=== PATIENT | male | born 1955 | race Caucasian/White ===

== ENCOUNTER → 2016-07-10 | Outpatient (CLI) | payer BC, OTHER ==
[~2016-07-10] VITALS: Ht 175.3 cm; Wt 101.4 kg
[~2016-07-10] MED LIST: ALEVE220 MG PO; AVODART0.5 MG PO; CENTRUM SILVER1 EAC2 PO; FISH OIL 1,2001 EAC4 PO; NEURONTIN 300300 M1 PO; NEURONTIN300 MG PO; TUMERIC
--- NOTE | ~2016-07-10 | HPC ---
[facility] [address] [place] [address] PAIN MANAGEMENT CONSULTATION Name: RANDOLPH FOSTER Room #: REG [facility].#: [id number] Admission: 07/10/16 Attend Phys: Rivas Hines DO Discharge: Date of : 57 Report #: [id number] THIS REPORT FOR: //name// CC: Rivas Persaud DATE OF SERVICE: 07/10/2016 REFERRING PHYSICIAN: Sandor Griggs MD. CHIEF COMPLAINT: Right low back pain, right lower extremity pain and paresthesias. HISTORY OF PRESENT ILLNESS: As you know, the patient is an extremely pleasant 60-year-old male returning in followup visit for medication management. The patient began experiencing low back pain, right lower extremity pain in October of 2015. Denied any injury or trauma that may have led to symptoms. He was seen per the request of Dr. Griggs to trial epidural injections, the patient and I chose to begin with medication management initially, as he did not wish to become aggressive with treatment unless conservative treatments fail. He has done very well, reporting with 600 mg dose of gabapentin at night, near 100% resolution of symptoms. He is placing pain score at 0/10 today. He returns today in followup visit for continuation of medication management. ALLERGIES: CODEINE. CURRENT MEDICATIONS: Gabapentin, multivitamin, omega 3 fish oil, Avodart, Aleve, and naproxen. SOCIAL HISTORY: The patient denies tobacco, IV or illicit drug use. Admits to an occasional alcoholic beverage. 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 He is working, not receiving workmen's compensation. Unaccompanied today. PHYSICAL EXAMINATION: VITAL SIGNS: Blood pressure 117/79, pulse is 62, respiratory rate 14, unlabored. The patient is 96% on room air. Height 5 feet 9 inches tall, weight 223.6 pounds, BMI calculated at 33. GENERAL: Well-developed, well-nourished, and well-hydrated. A 60-year-old male, appearing his stated age. He is placing current pain score at 0/10. HEENT: Normocephalic and atraumatic. Pupils are equal, round, and reactive to light. Hearing is decreased. EXTREMITIES: Showed no clubbing, no cyanosis, no edema. MUSCULOSKELETAL: Lower extremity strength equal and symmetrical at 5/5. Gait normal and tandem. Station normal. Seated straight leg raising negative. Supine straight leg raising mildly positive right. Talib's test is negative. [facility] [address] [place] [address] PAIN MANAGEMENT CONSULTATION Name: RANDOLPH FOSTER Room #: REG [facility]#: [id number] Admission: 07/10/16 Attend Phys: Rivas Hines DO Discharge: Date of : 57 Report #: [id number] ASSESSMENT: 1. Lumbar radiculopathy. 2. 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 3. Lumbosacral spondylosis with radiculopathy. 4. Lumbar degeneration. PLAN: 1. The patient has returned today in followup visit having noted excellent improvement with gabapentin therapy. The patient is now at 600 mg to 900 mg at night with good efficacy. He is denying any side effects to medication and wishes to continue therapy at current dosing. We have agreed to continue the medication for the next 6 months as he is doing well with medication therapy. Side effects are nonexistent such as sleepiness, disorientation, and confusion. The fact that he has done well with this medication, would indicate that he should continue on the therapy for the foreseeable future. Certainly surgical options remain, as well as does epidural injections, but we are pleased to see he has done very well with conservative treatment. 2. The patient was provided a prescription of gabapentin 300 mg dose 3 tabs p.o. at bedtime, #90. This allowed the patient to take the 600 mg baseline dose or 900 mg dose, if necessary if pain intensifies. We have given the patient #90 tablets with five refills. 6 months' worth of medication. 3. The patient will return to our clinic on an as needed basis if he wishes to undergo interventional treatments. Discussed changes in medication therapy. Otherwise, we will see him back in followup visit in 6 months for medication management. <ELECTRONICALLY SIGNED> By: Rivas Hines DO 07/15/16 0702 0843 [id number] Rivas Hines DO /nt
[2016-07-10 08:17] VITALS: BP 117/79
== END | disposition home or self-care (01) ==
LOC: PAIN 06:29
DX: M51.16 Intervertebral disc disorders with radiculopathy, lumbar region (principal); M47.27 Other spondylosis with radiculopathy, lumbosacral region; G47.33 Obstructive sleep apnea (adult) (pediatric)

== ENCOUNTER → 2017-06-24 | Outpatient (CLI) | payer BC, OTHER ==
[~2017-06-24] VITALS: Ht 175.3 cm; Wt 98.9 kg
[~2017-06-24] MED LIST changes: +FISH OIL 1,001000 M2 PO; +GLUCOSAMINE HC500 MG PO; +MOBIC7.5 MG PO; +ROXICODONE5 MG PO
--- NOTE | ~2017-06-24 | HPC ---
[facility] [place] [address] PAIN MANAGEMENT CONSULTATION Name: RANDOLPH FOSTER Room #: REG [facility] Serena#: [id number] Admission: 06/24/17 Attend Phys: Rivas Hines DO Discharge: Date of : 57 Report #: [id number] THIS REPORT FOR: //name// CC: Rivas Hines Referring Physician Rodrigo Persaud DATE OF SERVICE: 06/24/2017 CHIEF COMPLAINT: Low back pain, right lower extremity pain with paresthesias. HISTORY OF PRESENT ILLNESS: As you know, the patient is a very pleasant 61-year-old male with longstanding history of low back pain, right lower extremity pain with paresthesias. He carries a diagnosis of lumbar radiculopathy, displacement of a lumbar intervertebral disk with radiculopathy, lumbosacral spondylosis with radiculopathy and lumbar degeneration. He returns today in followup visit indicating that his medications have begun to lose effect. He returns today to discuss options for treatment. He has not had imaging in a very long period of time believes that something "may have changed." He returns today to discuss options for treatment. As you are aware, the patient was referred to our clinic by his neurosurgeon, Dr. Sandor Griggs to trial conservative treatment. We have been successful in treating his symptoms for a very long period of time, but I am concerned that there is possibility to change, maybe significant enough that we cannot obtain further analgesia with oral medications. We will make adjustments in the therapy today and hopefully have the patient undergo new imaging. ALLERGIES: CODEINE. CURRENT MEDICATIONS: Multivitamin, omega-3 fish oil, Avodart, gabapentin. SOCIAL HISTORY: The patient denies tobacco, IV or illicit drug use. Admits to occasional alcohol beverage. 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 IMAGING: No new imaging available. PHYSICAL EXAMINATION: VITAL SIGNS: Blood pressure 126/79, pulse 70, respiratory rate 16 and unlabored, the patient is 97% on room air. Height 5 feet 9 inch tall, weight 218 pounds, BMI calculated 32.2. GENERAL: Well-developed, well-nourished, well-hydrated 61-year-old male appearing his stated age, pain is rated around 10/10. HEENT: Normocephalic, atraumatic. Pupils are equal, round, reactive to light. Speech is fluent for patient, hearing loss noted. EXTREMITIES: Show no clubbing, no cyanosis, [place] [address] PAIN MANAGEMENT CONSULTATION Name: RANDOLPH FOSTER Room #: REG [facility]#: [id number] Admission: 06/24/17 Attend Phys: Rivas Hines DO Discharge: Date of : 57 Report #: [id number] MUSCULOSKELETAL: Lower extremity strength equal and symmetrical 5/5. Gait is normal. Stance is normal. Seated straight leg raising negative. Supine straight leg raising positive on the right. ASSESSMENT: 1. Lumbar radiculopathy. 2. Displacement of lumbar intervertebral disk with radiculopathy. 3. Lumbosacral spondylosis with radiculopathy. 4. Lumbar degeneration. 5. Chronic intractable pain. PLAN: 1. The patient returns today in followup visit unfortunately, indicating that his symptoms have progressed. He is now placing pain score 10/10. He denies new injury or new trauma, but believes his pain has changed to some degree. He is returning today for adjustments in medication therapy and discuss other options for treatment. Given the findings on physical exam and the distribution of symptoms, I am concerned of progressively worsening lumbar radiculopathy. I recommend further imaging and adjustments in therapy today. 2. The patient will undergo CT of the lumbar spine without contrast. The patient cannot undergo MRI due to implanted devices. He will undergo the CT examination immediately and we will review the findings once they are available. We have established an appointment for the patient to undergo CT examination. We will review the findings once they are available and contact the patient once those results have been reported. We will have the patient return to discuss the potential treatment options including the possibility of returning to his neurosurgeon for further evaluation. 3. We will start the patient on Gralise. He is having difficulty escalating his dose of gabapentin. He is currently taking the equivalent of 900 mg per day, but cannot escalate the dose due to side effects of somnolence, decreased mental acuity, disorientation, confusion with daytime dosing. Even the evening doses are leading to symptoms that last for hours upon arising. We have attempted to adjust these medications, but have been unsuccessful at alleviating the dysphoric effects. We will start the patient on Gralise. He will take this medication at night 2 hours before bedtime, is given sample pack of the medication. I am hopeful he will see analgesic benefit with the gabapentin as he has with the immediate release with the reduction in the potential side effects that are noted with a long-acting gabapentin therapy. We have provided the sample pack today. We will review its efficacy at our followup visit. 4. The patient will return to our clinic once he has completed the CT examination. We will review the findings and discuss the efficacy of the Gralise therapy. <ELECTRONICALLY SIGNED> By: Rivas Hines DO 06/25/17 1219 0814 0918 Rivas Hines DO /janine
[2017-06-24 08:44] VITALS: BP 126/79
== END ==
LOC: PAIN 06:43
DX: M51.16 Intervertebral disc disorders with radiculopathy, lumbar region (principal); M47.27 Other spondylosis with radiculopathy, lumbosacral region; M47.896 Other spondylosis, lumbar region; G89.29 Other chronic pain; Z72.89 Other problems related to lifestyle

== ENCOUNTER → 2017-07-01 | Outpatient (CLI) | payer BC, OTHER | LOC: CAT 07:57 | DX: M48.061 Spinal stenosis, lumbar region without neurogenic claudication (principal); M54.16 Radiculopathy, lumbar region; M47.896 Other spondylosis, lumbar region; M51.27 Other intervertebral disc displacement, lumbosacral region ==

== ENCOUNTER → 2017-07-02 | Outpatient (CLI) | payer BC, OTHER ==
[~2017-07-02] VITALS: Ht 180.3 cm; Wt 99.7 kg
--- NOTE | ~2017-07-02 | HPC ---
[facility] [place] [address] PAIN MANAGEMENT CONSULTATION Name: RANDOLPH FOSTER Room #: REG [facility]#: [id number] Admission: 07/02/17 Attend Phys: Rivas Hines DO Discharge: Date of : 57 Report #: [id number] THIS REPORT FOR: //name// CC: Rivas Persaud DATE OF SERVICE: 07/02/2017 REFERRING PHYSICIAN: Sandor Griggs MD CHIEF COMPLAINT: Low back pain, bilateral lower extremity pain and paresthesias, right greater than left. HISTORY OF PRESENT ILLNESS: As you know, the patient is a very pleasant 61-year-old male who returns today in followup visit to discuss the findings of his recent CT examination, also to discuss the efficacy with Gralise. The patient was having difficulty with somnolence, decreased mental acuity, disorientation, confusion with immediate release gabapentin, we have trialed the patient on Gralise, he is now taking 1500 mg at night 2 hours before bedtime and does notice improvement in symptoms. He is yet to escalate to the 1800 mg dose. He returns for a sample of medications, so we can continue that therapy. He denies any new injury or new trauma that may have led to continuation of symptoms. ALLERGIES: CODEINE. CURRENT MEDICATIONS: Multivitamin, omega-3 fish oil, Avodart, and Gralise. SOCIAL HISTORY: The patient denies tobacco, IV or illicit drug use, admits to occasional alcoholic beverage. 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 IMAGING: CT of the lumbar spine obtained 07/01/2017, shows T12-L1 and L1-L2 unremarkable. L2-L3 shows mild broad-based disk bulge producing mild anterior sac effacement, mild ligamentum flavum hypertrophy. L3-L4, mild disk bulge, moderate ligamentum flavum hypertrophy. L4-L5 shows bilateral neural foraminal narrowing due to combination of broad-based disk bulge and facet hypertrophy. L5-S1 shows foramen are intact, mild broad-based disk bulge, no disk herniation or central canal stenosis. PHYSICAL EXAMINATION: VITAL SIGNS: Blood pressure 126/83, pulse 70, respiratory rate 16 and unlabored, the patient is 97% on room air,, height 5 feet 11 inches tall, weight 219.8 pounds, and BMI calculated 30.7. GENERAL: Well-developed, well-nourished, well-hydrated 61-year-old male, [place] [address] PAIN MANAGEMENT CONSULTATION Name: RANDOLPH FOSTER Room #: REG [facility]#: [id number] Admission: 07/02/17 Attend Phys: Rivas Hines DO Discharge: Date of : 57 Report #: [id number] appears his stated age, he is placing pain score today around 8/10. HEENT: Normocephalic, atraumatic. Pupils are equal, round, and reactive to light. EXTREMITIES: Show no clubbing, no cyanosis, and no edema. MUSCULOSKELETAL: Seated straight leg raising negative. Supine straight leg raising positive right. Talib's test negative. Modified Gaenslen's positive for axial low back pain. Gait is antalgic favoring right lower extremity over left. Pain is elicited with walking long distances of up to 50 feet. ASSESSMENT: 1. Symptomatic lumbar radiculopathy. 2. Neural foraminal stenosis of the lumbar spine. 3. Displacement of lumbar intervertebral disk with radiculopathy. 4. Lumbosacral spondylosis with radiculopathy. 5. Lumbar degeneration. 6. Chronic intractable pain. PLAN: 1. The patient returns today in followup visit where we have reviewed in its entirety the CT examination obtained on July 01. It does appear the patient is suffering from foraminal stenosis and neural foraminal pain from the L4-L5 level that does correlate with the patient's symptoms at this time. We discussed treatment options, which would include physical therapy, stretching exercise, core strengthening, adjustments in medication for which we are going to be escalating the dose of Gralise further, we also discussed spinal cord stimulator therapy and surgical options. The patient after reviewing risks and benefits, he wishes to discuss his case further with neurosurgery and a referral will be made for this request and we will also have the patient escalate his dose of Gralise. 2. The patient was provided samples of Gralise at 600 mg tablets, He was given enough to escalate dose to 1800 mg at night and continue for 1 week, he will then contact our clinic to discuss efficacy versus potential side effects. We are hopeful the patient will see significant pain improvement with this escalation in medication. He is having no side effects as he was with the immediate release gabapentin and does feel his benefit is about 25% at this point. 3. The patient was given a referral to neurosurgery of [facility]. He can make an appointment at his earliest convenience. I did advise the patient to take with him today a CT disc, so that can be reviewed during his consultation. He was given the prescription to make an appointment at his earliest convenience. 4. We will see the patient back in followup visit as early as next week to [address] [address] PAIN MANAGEMENT CONSULTATION Name: RANDOLPH FOSTER Room #: REG [facility].#: [id number] Admission: 07/02/17 Attend Phys: Rivas Hines DO Discharge: Date of : 57 Report #: [id number] discuss the efficacy of the Gralise and also to discuss the possibility of undergoing interventional treatments if necessary. <ELECTRONICALLY SIGNED> By: Rivas Hines DO 07/04/17 1110 1002 1200 Rivas Hines DO /nt
[2017-07-02 08:55] VITALS: BP 126/83
== END ==
LOC: PAIN 06:36
DX: M48.061 Spinal stenosis, lumbar region without neurogenic claudication (principal); M51.16 Intervertebral disc disorders with radiculopathy, lumbar region; M47.27 Other spondylosis with radiculopathy, lumbosacral region; G89.29 Other chronic pain; R20.2 Paresthesia of skin; Z72.89 Other problems related to lifestyle

== ENCOUNTER → 2018-01-13 | Outpatient (CLI) | payer BC, OTHER ==
[~2018-01-13] VITALS: Ht 180.3 cm; Wt 97.3 kg
--- NOTE | ~2018-01-13 | HPC ---
[facility] [address] [place] [address] PAIN MANAGEMENT CONSULTATION Name: RANDOLPH FOSTER Room #: REG [facility]#: [id number] Admission: 01/13/18 Attend Phys: Rivas Hines DO Discharge: Date of : 57 Report #: [id number] THIS REPORT FOR: //name// CC: Rivas Persaud MD DATE OF SERVICE: 01/13/2018 CHIEF COMPLAINT: Low back pain, bilateral lower extremity pain with paresthesias, right greater than left, bilateral knee pain. HISTORY OF PRESENT ILLNESS: As you know, the patient is a very pleasant 61-year-old male who has had a longstanding history of low back pain, bilateral lower extremity pain with paresthesias. As you are aware, the patient carries a diagnosis of symptomatic lumbar radiculopathy secondary to neural foraminal stenosis, displaced lumbar intervertebral disks, facet changes causing lumbosacral spondylosis and lumbar degeneration. The patient has done very well with medication management, returning for gabapentin refills. He is also describing bilateral knee pain that has progressively worsened and appears to be arthritic in nature. It is exacerbated with standing, walking and bending, improves with rest and relaxation. He returns for refill of gabapentin, but also to discuss potential treatment option for bilateral knee pain. ALLERGIES: CODEINE. CURRENT MEDICATIONS: Gabapentin 600 mg 2 tabs p.o. at bedtime, oxycodone 5 mg per day, multivitamin 1 tab per day, omega-3 fish oil 1 tab per day, dutasteride 0.5 mg once a day. SOCIAL HISTORY: The patient denies tobacco, IV or illicit drug use. Admits to an occasional alcohol beverage. 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 IMAGING: There is no new imaging available. PHYSICAL EXAMINATION: VITAL SIGNS: Blood pressure 111/74, pulse is 52, respiratory rate 16, unlabored. The patient is 98% on room air. Height 5 feet 11 inches tall, weight 214.4 pounds, BMI calculated 29.9. GENERAL: Well-developed, well-nourished, well-hydrated 61-year-old male appearing his stated age, he is placing current pain score at around 4/10. HEENT: Normocephalic, atraumatic. Pupils are equal, round, reactive to light. Extraocular muscles are intact. Sclerae nonicteric, without injection. Hearing decreased, [place] [address] PAIN MANAGEMENT CONSULTATION Name: RANDOLPH FOSTER Room #: REG [facility]#: [id number] Admission: 01/13/18 Attend Phys: Rivas Hines DO Discharge: Date of : 57 Report #: [id number] EXTREMITIES: Show no clubbing, no cyanosis, no edema. MUSCULOSKELETAL: Seated straight leg raising negative. Supine straight leg raising positive on the right. Talib's test negative. Modified Gaenslen's positive for axial low back pain. Gait appears antalgic favoring right lower extremity over left. Pain is elicited over the bilateral knees with standing and active and passive range of motion of the knees, right greater than left. ASSESSMENT: 1. Symptomatic lumbar radiculopathy. 2. Neural foraminal stenosis of lumbar spine. 3. Displacement of lumbar intervertebral disk with radiculopathy. 4. Lumbosacral spondylosis with radiculopathy. 5. Lumbar degeneration. 6. Bilateral knee pain. 7. Bilateral knee osteoarthritis. 8. Chronic intractable pain. PLAN: 1. The patient has returned today in followup visit requesting refill on gabapentin. He feels the gabapentin is working very well for pain control. Currently, he is taking 600 mg in the morning and 900 mg at night and is requesting refill of the therapy. He is denying any side effects of sleepiness, disorientation, confusion, mental slowing with the use of therapy. He feels it controls his pain very well and is wishing to continue treatment. 2. The patient was provided a prescription of gabapentin 300 mg dose 2 tabs in the morning and 3 tabs at night, given #150 with 5 refills, 6 months' worth of medication. The patient was advised he can receive these medications through our services or through his primary care services whoever he is following up with. 3. The patient does appear to be suffering from bilateral knee osteoarthritis. This has progressed in this patient's case. He states he spends a significant amount of his day standing and bending and kneeling due to his job and this has exacerbated his symptoms. We discussed treatment options for bilateral knee pain secondary to osteoarthritis. These would include physical therapy, stretching exercises. We discussed medication management with either oral nonsteroidal anti-inflammatories or topical nonsteroidal anti-inflammatories. We discussed intraarticular knee injections with triamcinolone or possibly injections with Synvisc. If these are ineffective, surgical options exist. The patient after reviewing risks and benefits requested changes in medication from an oral standpoint. 4. The patient was provided samples of Zipsor 25 mg dose 1 tab p.o. b.i.d. The patient will take this with meals. He was given Zipsor samples for the next couple of days. He will contact our clinic before the end of the week to discuss efficacy. If he finds good improvement in symptoms, we will provide a full prescription for the patient either as the trade name Zipsor or the generic of diclofenac. The patient will contact our clinic over the next couple of days [facility] [address] [place] [address] PAIN MANAGEMENT CONSULTATION Name: RANDOLPH FOSTER Room #: REG [facility]#: [id number] Admission: 01/13/18 Attend Phys: Rivas Hines DO Discharge: Date of : 57 Report #: [id number] to report efficacy of the nonsteroidal anti-inflammatory. 5. We will see the patient back in followup visit on an as needed basis for interventional treatments; otherwise, we will see him back in 6 months for medication management. <ELECTRONICALLY SIGNED> By: Rivas Hines DO 01/14/18 0853 0721 0802 Rivas Hines DO /nt
[2018-01-13 09:24] VITALS: BP 111/74
== END ==
LOC: PAIN 07:33
DX: M47.27 Other spondylosis with radiculopathy, lumbosacral region (principal); M48.062 Spinal stenosis, lumbar region with neurogenic claudication; M17.0 Bilateral primary osteoarthritis of knee; M51.16 Intervertebral disc disorders with radiculopathy, lumbar region; G89.4 Chronic pain syndrome